=== PATIENT | female | born 1975 | race Caucasian/White ===

== ENCOUNTER 2016-11-16 19:26 | Emergency (ER) | payer SELFPAY ==
[~2016-11-16] VITALS: Ht 180.3 cm; Wt 125.2 kg
[2016-11-16 19:47] VITALS: BP 136/81
== END 2016-11-16 22:25 | disposition left against medical advice (07) ==
LOC: EME 19:26
DX: R51 Headache (principal); Z53.21 Procedure and treatment not carried out due to patient leaving prior to being seen by health care provider